=== PATIENT | male | born 1970 | race Caucasian/White ===

== ENCOUNTER 2020-05-23 18:30 | Emergency (ER) | payer OTHER ==
[~2020-05-23] VITALS: Ht 162.6 cm; Wt 83.9 kg
[2020-05-23] MEDS ORDERED: LISINOPRIL2.5 MG PO (19:12)
[2020-05-23 19:34] LABS: ABSOLUTE BASOPHILS 0.1 thou/uL (0.0-0.2); ABSOLUTE EOSINOPHILS 0.2 thou/uL (0.0-0.7); ABSOLUTE NEUTROPHILS 5.8 thou/uL (1.6-8.1); BASOPHILS 1.2 %; EOSINOPHILS 2.2 %; HEMATOCRIT 47.6 % (42.0-52.0); HEMOGLOBIN 16.6 gm/dL (14.0-18.0); LYMPHOCYTES 22.3 %; MCH 29.6 pg (26.0-34.0); MCHC 34.9 g/dL (28.0-37.0); MCV 84.8 fL (80.0-100.0); MONOCYTES 10.5 %; MPV 8.3 fl. (7.2-11.1); NUCLEATED RBCS 0 /100WBC; PLATELET COUNT* 224 thou/uL (150-400); POLYS 63.8 %; RBC 5.61 mil/uL (4.50-6.00); RDW-CV 13.4 % (10.5-14.5); WBC 9.1 thou/uL (4.0-11.0)
[2020-05-23 19:37] LABS: CALCIUM 8.8 mg/dL (8.5-10.1); CREATININE 1.3 mg/dL (0.6-1.3); POTASSIUM 3.9 mmol/L (3.5-5.1)
[2020-05-23 19:41] LABS: ALBUMIN 3.8 g/dL (3.4-5.0); TOTAL BILIRUBIN 0.4 mg/dL (<0.1-1.0); TOTAL PROTEIN 7.8 g/dL (6.4-8.2)
[2020-05-23 20:14] LABS: URINE BILIRUBIN NEGATIVE (Negative); URINE BLOOD NEGATIVE (Negative); URINE CLARITY CLEAR; URINE COLOR YELLOW; URINE GLUCOSE-RANDOM NEGATIVE (Negative); URINE KETONES NEGATIVE (Negative); URINE LEUKOCYTES-REFLEX NEGATIVE (Negative); URINE NITRITE-REFLEX NEGATIVE (Negative); URINE PROTEIN NEGATIVE (Negative); URINE UROBILINOGEN 0.2 E.U./dl (0.2-1.0)
[2020-05-23] MEDS ORDERED: ZOFRAN ODT4 MG PO (21:34)
[2020-05-23] MEDS ORDERED: FLAGYL500 M1 PO (21:34)
[2020-05-23] MEDS ORDERED: CIPROFLOXACIN500 M1 PO (21:34)
[2020-05-23] MEDS ORDERED: HYDROCODON-ACE1 EAC7 PO (21:34)
[2020-05-23 21:49] VITALS: BP 141/70
--- NOTE | 2020-05-24 19:18 | EKG ---
[place] [address] ELECTROCARDIOGRAM REPORT Name: SHARI PANDYA Room: [facility]#: [id number] Admission: 05/23/20 Attend Phys: Discharge: 05/23/20 Date of : 72 Date of Service: 05/23/201936 Report #: [id number] THIS REPORT FOR: //name// [facility] ED Test Date: 2020-05-23 Test Time: 19:37:41 Pat Name: SHARI PANDYA Department: Room: Gender: [employer]: : 1970 Requested By: Monae Ferraro Order Number: [id number] MD: Junaid Kirby Measurements Intervals [place] Rate: 78 P: 33 [place]: 150 QRS: 6 QRSD: 92 T: 12 QT: 374 QTc: 426 Interpretive Statements Sinus rhythm No previous ECG available for comparison Electronically Signed On 05-24-2020 17:42:03 CDT by Junaid Kirby [email or web address] <ELECTRONICALLY SIGNED> By: Junaid Kirby MD, [facility] 05/24/201741 36 36 Junaid Kirby MD, FACC /EPI
== END 2020-05-23 21:50 | disposition home or self-care (01) ==
LOC: M.ERS 18:30
PROVIDERS: Personal Emergency Response Attendant
DX: K57.32 Diverticulitis of large intestine without perforation or abscess without bleeding (principal); Z79.899 Other long term (current) drug therapy; Z96.641 Presence of right artificial hip joint